=== PATIENT | female | born 1960 | race Two or more races ===

== ENCOUNTER 2019-10-24 13:52 | Emergency (ER) | payer OTHER ==
[~2019-10-24] VITALS: Ht 157.5 cm; Wt 77.7 kg
[2019-10-24 14:13] VITALS: BP 144/80
[2019-10-24] MEDS ORDERED: TETRACAINE 0.5% OPHTH SOLUTION 4ML BOTTLE. OD ONE (15:15)
[2019-10-24] MEDS ORDERED: FLUORESCEIN OPHTH TEST STRIP. OD ONE (15:15)
--- NOTE | 2019-10-24 15:38 | PHYS DOC ---
Past Medical History Past Medical History: No Pertinent History Past Surgical History: No Surgical History Smoking Status: Never Smoker Alcohol Use: None General Adult EDM: Chief Complaint: EYE PROBLEMS HPI: HPI: Patient is a 59 year old female who presents with right eye redness that started 3 days ago. Patient denies any eye pain. She reports that she occasionally has a burning sensation in the corner of her eye. She reports that yesterday she woke up and she did have a little bit of crusting in the corner of her eye. She denies any vision changes, tearing, discharge, injury, foreign body, itching. She is also denying headache, nausea, vomiting, lightheadedness, fever. Review of Systems: Review of Systems: Constitutional: Denies fever or chills. [] Eyes: See HPI. [] HENT: Denies nasal congestion or sore throat. [] Respiratory: Denies cough or shortness of breath. [] Cardiovascular: Denies chest pain or edema. [] GI: Denies abdominal pain, nausea, vomiting, or diarrhea. [] Integument: Denies rash. [] Neurologic: Denies headache, focal weakness or sensory changes. [] Psychiatric: Denies depression or anxiety. [] Heart Score: Risk Factors: Risk Factors: DM, Current or recent (<one month) smoker, HTN, HLP, family history of CAD, obesity. Risk Scores: Score 0 - 3: 2.5% MACE over next 6 weeks - Discharge Home Score 4 - 6: 20.3% MACE over next 6 weeks - Admit for Clinical Observation Score 7 - 10: 72.7% MACE over next 6 weeks - Early Invasive Strategies Current Medications: Current Medications Medications (Trade) Dose Ordered Sig/Jt Start Time Stop Time Status Last Admin Dose Admin Fluorescein Sodium (Ful-Vee) 1 strip 1X ONCE 10/24/19 15:15 10/24/19 15:16 DC Tetracaine HCl (Tetracaine) 1 drop 1X ONCE 10/24/19 15:15 10/24/19 15:16 DC Allergies: Allergies: Allergies Coded Allergies Type Severity Reaction Last Updated Verified No Known Drug Allergies 10/24/19 No Physical Exam: PE: Constitutional: Well developed, well nourished, no acute distress, non-toxic appearance. [] HENT: Normocephalic, atraumatic, bilateral external ears normal, oropharynx moist, no oral exudates, nose normal. [] Eyes: PERRLA, EOMI, left conjunctiva normal, no discharge; redness noted to medial sclera of right eye, there is no drainage or discharge noted, no visible foreign body, no pain with palpation of orbit, 2 mm raised white area medial to the iris. [] Neck: Normal range of motion, no stridor. [] Cardiovascular:Heart rate regular rhythm[] Lungs & Thorax: Respirations even and unlabored, no retractions, no respiratory distress [] Skin: Warm, dry, no erythema, no rash. [] Extremities: no cyanosis, ROM intact, no edema. [] Neurologic: Alert and oriented X 3, normal motor function, no focal deficits noted. [] Psychologic: Affect normal, judgement normal, mood normal. [] Current Patient Data: Vital Signs: Vital Signs Date Time Temp Pulse Resp B/P (MAP) Pulse Ox O2 Delivery O2 Flow Rate FiO2 10/24/19 14:13 98.4 69 18 144/80 (101) 100 Room Air 98.4 EKG: EKG: [] Radiology/Procedures: Radiology/Procedures: Using tetracaine and fluroscein the patient's eye was examined under Wood's lamp and and no area of uptake was noted. Patient's ocular symptoms have stabilized while they have been evaluated in the department and are appropriate for outpatient work up. No evidence of ruptured globe, retinal detachment, acute angle closure glaucoma, or deep space infection. Plan for ophthalmologic follow up. Course & Med Decision Making: Course & Med Decision Making Pertinent Labs and Imaging studies reviewed. (See chart for details) 59-year-old female presents to the emergency department with right eye complaints. [] Dragon Disclaimer: Dragon Disclaimer: This electronic medical record was generated, in whole or in part, using a voice recognition dictation system. Departure Departure Impression: Primary Impression: Episcleritis of right eye Disposition: 01 HOME, SELF-CARE Condition: STABLE Referrals: UNKNOWN PCP NAME (PCP) Juan HUERTA MD Patient Instructions: Eye - Scleritis and Episcleritis Additional Instructions: Fill the prescriptions and use as directed. Follow up with Dr. Kumar's office in 1-2 days for eye exam. Return to the ER if symptoms worsen. Scripts Ibuprofen (IBUPROFEN) 600 Mg Tablet 600 MG PO PRN Q6HRS PRN for INFLAMMATION for 7 Days, #28 TAB 0 Refills Prov: AMANDA DAVISON APRN 10/24/19 Polymyxin B Sulf/Trimethoprim (POLYTRIM EYE DROPS) 10 Ml Drops 2 DROP EACHEYE Q6HRS for 7 Days, #10 ML 0 Refills Prov: AMANDA DAVISON APRN 10/24/19 Justicifation of Admission Dx: Justifications for Admission: Justification of Admission Dx: N/A AMANDA DAVISON APRN Oct 24, 2019 15:37
[2019-10-24] MEDS ORDERED: POLY10DR EACHEYE (16:02)
[2019-10-24] MEDS ORDERED: IBUP-1007 PO (16:02)
== END 2019-10-24 16:28 | disposition home or self-care (01) ==
LOC: ER 13:52
DX: H15.101 Unspecified episcleritis, right eye (principal)
CPT/HCPCS: 99283